=== PATIENT | female | born 1940 ===

== ENCOUNTER 2017-03-29 13:03 | Inpatient (IN) | payer MEDICARE ==
[2017-03-29 14:33] LABS: BASO % 0.5 % (0.0-2.0); EOS % 0.1 % (0.0-4.0); HEMOGLOBIN 13.8 g/dL (12.0-16.0); LYMPH # 1.9 K/uL (1.0-4.3); LYMPH % 24.4 % (20.0-40.0); MEAN CELL VOLUME 96.5 fl (81.0-99.0); MEAN CORPUSCULAR HEMOGLOBIN 32.4 pg (27.0-31.0); MEAN CORPUSCULAR HGB CONC 33.6 g/dL (33.0-37.0); MEAN PLATELET VOLUME 8.5 fl (7.2-11.7); MONO # 0.5 K/uL (0.0-0.8); MONO % 6.6 % (0.0-10.0); NEUT # 5.3 K/uL (1.8-7.0); NEUT % 68.4 % (50.0-75.0); NRBC % 0.1 % (0.0-0.0); RBC 4.26 Mil/uL (3.80-5.20); RED CELL DISTRIBUTION WIDTH 14.7 % (11.5-14.5); WHITE BLOOD COUNT 7.8 K/uL (4.8-10.8)
[2017-03-29 14:35] LABS: ALB/GLOB RATIO 1.4 (1.0-2.1); ALBUMIN 4.6 g/dL (3.5-5.0); CALCIUM 9.4 mg/dL (8.4-10.2)
[2017-03-29 14:40] LABS: SQUAMOUS EPITHIAL 2 /hpf (0-5); URINE BACTERIA RARE (<OCC); URINE BILIRUBIN NEGATIVE (NEGATIVE); URINE BLOOD NEGATIVE (NEGATIVE); URINE CLARITY SLIGHTY-CLOUDY (Clear); URINE COLOR YELLOW (YELLOW); URINE GLUCOSE (UA) NEG (Normal); URINE LEUKOCYTE ESTERASE TRACE Leu/uL (Negative); URINE NITRATE NEGATIVE (NEGATIVE); URINE PROTEIN 30 mg/dL (NEGATIVE)
--- NOTE | 2017-03-29 14:46 | ED PDOC ---
HPI: Abdomen Time Seen by Provider: 03/29/17 13:32 Chief Complaint (Nursing): GI Problem History Per: Patient History/Exam Limitations: no limitations Onset/Duration Of Symptoms: Gradual (yesterday) Current Symptoms Are (Timing): Still Present Severity: Mild Location Of Pain/Discomfort: LLQ Quality Of Discomfort: Dull Associated Symptoms: Constipation. denies: Fever, Chills, Nausea, Vomiting, Back Pain, Chest Pain Exacerbating Factors: None Alleviating Factors: None Last Bowel Movement: Today Additional History Per: Patient Additional Complaint(s): Pt ambulates into ED with c/o abdominal pain since last night associated with brbpr noted to stool. mild nausea and vomiting intermittent constipation for 2 weeks. no urinary complaints Past Medical History Reviewed: Historical Data, Nursing Documentation, Vital Signs Vital Signs: Last Vital Signs Temp 97.8 F 03/30/17 01:42 Pulse 54 L 03/30/17 01:42 Resp 20 03/30/17 01:42 BP 112/67 03/30/17 01:42 Pulse Ox 96 03/30/17 01:42 - Medical History PMH: Hyperlipidemia, Hypothyroidism - Surgical History Surgical History: No Surg Hx - Family History Family History: States: Unknown Family Hx - Living Arrangements Living Arrangements: With Family - Social History Current smoker - smoking cessation education provided: No - Home Medications Home Medications: Ambulatory Orders Medication Instructions Recorded No Known Home Med 03/29/17 - Allergies Allergies/Adverse Reactions: Allergies Allergy/AdvReac Type Severity Reaction Status Date / Time No Known Allergies Allergy Verified 03/29/17 13:55 Review of Systems ROS Statement: Except As Marked, All Systems Reviewed And Found Negative Constitutional: Negative for: Fever, Chills Cardiovascular: Negative for: Chest Pain, Palpitations Respiratory: Negative for: Cough, Shortness of Breath Gastrointestinal: Positive for: Nausea, Vomiting, Abdominal Pain, Constipation, Hematochezia. Negative for: Diarrhea, Melena, Hematemesis, Rectal Pain Genitourinary Female: Negative for: Dysuria Neurological: Negative for: Weakness, Numbness Physical Exam - Reviewed Nursing Documentation Reviewed: Yes Vital Signs Reviewed: Yes - Physical Exam Appears: Positive for: Uncomfortable Head Exam: Positive for: ATRAUMATIC, NORMAL INSPECTION, NORMOCEPHALIC Eye Exam: Positive for: Normal appearance, EOMI, PERRL Neck: Positive for: Normal, Painless ROM, Supple Cardiovascular/Chest: Positive for: Regular Rate, Rhythm, Chest Non Tender. Negative for: Edema, Gallop, Murmur, Bradycardia, Tachycardia Respiratory: Positive for: Normal Breath Sounds. Negative for: Decreased Breath Sounds, Accessory Muscle Use, Crackles, Rales, Rhonchi, Stridor, Wheezing Gastrointestinal/Abdominal: Positive for: Normal Exam, Bowel Sounds, Soft, Tenderness (mild llq). Negative for: Organomegaly, Mass, Distended, Guarding, Rebound, Hernia, Asicites Back: Positive for: Normal Inspection. Negative for: L CVA Tenderness, R CVA Tenderness, Vertebral Tenderness Extremity: Positive for: Normal ROM. Negative for: Tenderness, Pedal Edema, Calf Tenderness, Capillary Refill, Deformity, Swelling Neurologic/Psych: Positive for: Alert, web database developer II-XII, Oriented, Mood/Affect (calm) . Negative for: Motor/Sensory Deficits - Laboratory Results Result Diagrams: 03/30/17 06:00 03/30/17 06:00 - ECG O2 Sat by Pulse Oximetry: 100 Pulse Ox Interpretation: Normal - Progress ED Course And Treament: will admit for brbpr. ct scan reveals diffuse colitis. start antibiotics. Re-evaluation Time: 18:00 Condition: Improving,but remains with symptoms Disposition - Clinical Impression Clinical Impression: Colitis - Patient ED Disposition Is Patient to be Admitted: Yes Counseled Patient/Family Regarding: Studies Performed, Diagnosis - Disposition Disposition Time: 18:00 Condition: STABLE - Pt Status Changed To: Hospital Disposition Of: Observation - POA Present On Arrival: None
[2017-03-29] MEDS ORDERED: Sodium Chloride 0.9% 50 ML IV ONE (15:10)
[2017-03-29] MEDS ORDERED: Iodixanol 320 MG/ML 100 ML BOTTLE IV ONE (15:10)
[2017-03-29] MEDS ORDERED: metroNIDAZOLE 500mg/100ml NS 100 ML IVPB STA (17:36)
[2017-03-29] MEDS ORDERED: Ciprofloxacin 400mg/200ml D5W 400 MG/200 ML BAG IVPB STA (17:36)
--- NOTE | 2017-03-29 19:30 | CP.PCM.HP ---
History of Present Illness - History of Present Illness History of Present Illness: PCP: Not on Staff Chief Complaint: Abdominal Pain/ Red blood Per rectum HPI: The hx is obtained from the Patient and her daughter. She is a 77 years old female with hx of HLD and Hypothyroidism, off treatment. She comes referring 2 weeks of constipation, not eating much and developing 2 days ago a sudden unset of dull, continuous non radiating LLQ abdominal pain which continued until this day of admission, ending after she had a bowel movement, passing stool and red blood. She also referred epigastric pain which ceased after episodes of Vomiting. No prior hx of blood in stool, Chest pain, SOB, Urinary symptoms nor fever. PMH: HLD; Hypothyroidism which apparently has improved. PSH: Appendectomy; Dental surgery, cataract surgery SH: Former smoker, Quit 22 years ago; No alcohol use; No illegal drug use; Live with family FH: Daughter with Pancreatic cancer Allergies: NKDA Medication: None Present on Admission - Present on Admission Any Indicators Present on Admission: No History of DVT/PE: No History of Uncontrolled Diabetes: No Urinary Catheter: No Decubitus Ulcer Present: No Review of Systems - Constitutional Constitutional: absent: Anorexia, Chills, Fever, Headache - EENT Eyes: Requires Corrective Lenses. absent: Diplopia, Floaters Ears: absent: Decreased Hearing, Ear Discharge, Ear Pain, Tinnitus Nose/Mouth/Throat: absent: Epistaxis, Nasal Congestion, Nasal Discharge, Sinus Pain, Sinus Pressure - Cardiovascular Cardiovascular: absent: Chest Pain, Dyspnea, Edema - Respiratory Respiratory: absent: Cough, Dyspnea, Wheezing, Chest Congestion - Gastrointestinal Gastrointestinal: Abdominal Pain, Constipation, Hematochezia, Vomiting. absent : Diarrhea Additional comments: LLQ abdominal pain Epigastric Pains - Genitourinary Genitourinary: absent: Dysuria, Flank Pain, Hematuria, Urinary Frequency - Musculoskeletal Musculoskeletal: Back Pain. absent: Arthralgias, Muscle Cramps, Myalgias - Integumentary Integumentary: absent: Pruritus, Rash, Skin Ulcer, Sores, Striae, Swelling - Neurological Neurological: absent: Confusion, Focal Weakness, Tremor, Vertigo - Psychiatric Psychiatric: absent: Anxiety, Depression, Panic Attacks - Endocrine Endocrine: absent: Palpitations, Polydipsia, Polyphagia, Polyuria - Hematologic/Lymphatic Hematologic: absent: Easy Bleeding, Easy Bruising Past Patient History - Infectious Disease Hx of Infectious Diseases: None - Past Social History Smoking Status: Never Smoked Chewing Tobacco Use: No Cigar Use: No Alcohol: None Drugs: Denies Home Situation {Lives}: With Family - CARDIAC Hx Cardiac Disorders: Yes Hx Hypercholesterolemia: Yes - PULMONARY Hx Respiratory Disorders: No - NEUROLOGICAL Hx Neurological Disorder: No - HEENT Hx HEENT Problems: No - RENAL Hx Chronic Kidney Disease: No - ENDOCRINE/METABOLIC Hx Hypothyroidism: Yes - HEMATOLOGICAL/ONCOLOGICAL Hx Blood Disorders: No - INTEGUMENTARY Hx Dermatological Problems: No - MUSCULOSKELETAL/RHEUMATOLOGICAL Hx Back Pain: Yes - GASTROINTESTINAL Hx Gastrointestinal Disorders: No - GENITOURINARY/GYNECOLOGICAL Hx Genitourinary Disorders: No - PSYCHIATRIC Hx Psychophysiologic Disorder: No Hx Substance Use: No - SURGICAL HISTORY Hx Surgeries: Yes Hx Appendectomy: Yes Hx Cataract Extraction: Yes Other/Comment: DENTAL - ANESTHESIA Hx Anesthesia: Yes Hx Anesthesia Reactions: No Meds Allergies/Adverse Reactions: Allergies Allergy/AdvReac Type Severity Reaction Status Date / Time No Known Allergies Allergy Verified 03/29/17 13:55 Physical Exam - Constitutional Appears: No Acute Distress - Head Exam Head Exam: ATRAUMATIC, NORMAL INSPECTION, NORMOCEPHALIC - Eye Exam Eye Exam: EOMI, Normal appearance Pupil Exam: NORMAL ACCOMODATION, PERRL - ENT Exam ENT Exam: Mucous Membranes Moist, Normal Exam, Normal External Ear Exam, Normal Oropharynx - Neck Exam Neck exam: Positive for: Full Rom, Normal Inspection. Negative for: Lymphadenopathy, Tenderness - Respiratory Exam Respiratory Exam: Clear to Auscultation Bilateral. absent: Rales, Rhonchi, Wheezes - Cardiovascular Exam Cardiovascular Exam: REGULAR RHYTHM, RRR, +S1, +S2. absent: Gallop, JVD - GI/Abdominal Exam GI & Abdominal Exam: Normal Bowel Sounds, Soft. absent: Mass, Organomegaly - Rectal Exam Rectal Exam: Deferred - Extremities Exam Extremities exam: Positive for: full ROM, normal inspection. Negative for: calf tenderness, pedal edema - Back Exam Back exam: NORMAL INSPECTION. absent: CVA tenderness (L), CVA tenderness (R) - Neurological Exam Neurological exam: Alert, CN II-XII Intact, Oriented x3, Reflexes Normal - Psychiatric Exam Psychiatric exam: Normal Affect, Normal Mood - Skin Skin Exam: Dry, Intact, Normal Color, Warm Results - Vital Signs Recent Vital Signs: Last Vital Signs Temp 97.4 F L 03/29/17 13:08 Pulse 82 03/29/17 18:53 Resp 18 03/29/17 18:53 BP 152/74 H 03/29/17 18:53 Pulse Ox 97 03/29/17 18:53 - Labs Result Diagrams: 03/29/17 14:10 03/29/17 14:10 Labs: Laboratory Results - last 24 hr 03/29/17 03/29/17 03/29/17 14:10 14:10 14:29 WBC 7.8 RBC 4.26 Hgb 13.8 Hct 41.1 MCV 96.5 MCH 32.4 H MCHC 33.6 RDW 14.7 H Plt Count 161 MPV 8.5 Neut % (Auto) 68.4 Lymph % (Auto) 24.4 [place] % (Auto) 6.6 Eos % (Auto) 0.1 Baso % (Auto) 0.5 Neut # 5.3 Lymph # 1.9 [place] # 0.5 Eos # 0.0 Baso # 0.0 Sodium 140 Potassium 4.3 Chloride 104 Carbon Dioxide 27 Anion Gap 14 BUN 16 Creatinine 1.2 Est GFR ( Amer) 53 Est GFR (Non-Af Amer) 43 Random Glucose 89 Calcium 9.4 Total Bilirubin 0.8 AST 41 H ALT 44 Alkaline Phosphatase 57 Total Protein 7.8 Albumin 4.6 Globulin 3.2 Albumin/Globulin Ratio 1.4 Amylase 102 Lipase 27 Urine Color Yellow Urine Clarity Slighty-cloudy Urine pH 6.0 Ur Specific [place] 1.027 Urine Protein 30 Urine Glucose (UA) Neg Urine Ketones 20 Urine Blood Negative Urine Nitrate Negative Urine Bilirubin Negative Urine Urobilinogen 2.0 H Ur Leukocyte Esterase Trace Urine RBC (Auto) 3 Urine Microscopic WBC 6 H Ur Squamous Epith Cells 2 Urine Bacteria Rare - Imaging and Cardiology CT scan - abdomen Status: Report reviewed by me Additional comment: FINDINGS: Lower thorax: The visualized lung bases are clear. ABDOMEN: Liver: There is no focal liver lesion. Gallbladder and bile ducts: The gallbladder is normal. Pancreas: The pancreas is normal. Spleen: The spleen is normal. Adrenals: Adrenal glands are normal. Kidneys and ureters: There is no hydronephrosis or obstructive nephrolithiasis. There is no renal lesion. Stomach and bowel: There is diffuse wall thickening of the splenic flexure of the transverse colon extending into the descending colon and sigmoid colon consistent with nonspecific colitis. There is also nonspecific wall thickening of the rectum just above proctitis. Appendix: No findings to suggest acute appendicitis. PELVIS: Bladder: The urinary bladder is normal. Reproductive: Evaluation of the uterus is limited however there appears to be fluid within the endometrial cavity. ABDOMEN and PELVIS: Intraperitoneal space: Normal. No free air. No significant fluid collection. Bones/joints: There is no focal suspicious osseous abnormality. There are degenerative changes of the spine. There is mild age indeterminate compression fracture deformity of T11 vertebral body. Soft tissues: No soft tissue abnormality is identified. Vasculature: There is no abdominal aortic aneurysm. There are ath a erosclerotic calcifications of the abdominal aorta. Lymph nodes: No large adenopathy is identified. IMPRESSION: Diffuse wall thickening of the distal transverse colon extending into the descending colon, sigmoid colon and rectum consistent with colitis and proctitis. There is fluid within the endometrial cavity. Correlation with pelvic ultrasound is recommended. There is mild age indeterminate compression fracture deformity of T11 vertebral body. Assessment & Plan - Assessment and Plan (Free Text) Assessment: #.Colitis and Proctitis #. Lower GI bleed Plan: 77 years old female with hx of HLD and Hypothyroidism, off treatment.Comes with 2 weeks of constipation, and developing 2 days ago a sudden unset of dull, continuous non radiating LLQ abdominal pain which ending after she had a bowel movement, passing stool and red blood, associated with vomiting. No prior hx of blood in stool. #.Colitis and Proctitis #. Lower GI bleed - Consult Dr Doan GI - NPO - Stool for C diff - Follow Hb - Cipro - Flagyl - IV Fluids D5/NS at 100mls/hr #. Stress ulcer Prophylaxis with Pepcid # DVT prophylaxis with SCD #. Code Status: Full - Date & Time Date: 03/29/17 Time: 19:30
[2017-03-29] MEDS: Dextrose 5%/0.9% NS 1,000 ML IV SCH (22:24)
[2017-03-30 07:10] LABS: HEMOGLOBIN 14.4 g/dL (12.0-16.0); MEAN CELL VOLUME 96.8 fl (81.0-99.0); MEAN CORPUSCULAR HEMOGLOBIN 32.4 pg (27.0-31.0); MEAN CORPUSCULAR HGB CONC 33.5 g/dL (33.0-37.0); RBC 4.46 Mil/uL (3.80-5.20); RED CELL DISTRIBUTION WIDTH 14.6 % (11.5-14.5); WHITE BLOOD COUNT 7.6 K/uL (4.8-10.8)
[2017-03-30 07:28] LABS: CALCIUM 8.6 mg/dL (8.4-10.2)
[2017-03-30 07:33] LABS: PARTIAL THROMBOPLASTIN TIME 33.9 Seconds (25.6-37.1); PROTHROMBIN TIME 11.1 Seconds (9.8-13.1)
[2017-03-30] MEDS: Dextrose 5%/0.9% NS 1,000 ML IV SCH (07:50)
[2017-03-30] MEDS ORDERED: metroNIDAZOLE 500mg/100ml NS 100 ML IVPB SCH (09:00)
[2017-03-30] MEDS ORDERED: Ciprofloxacin 400mg/200ml D5W 400 MG/200 ML BAG IVPB SCH (09:00)
--- NOTE | 2017-03-30 09:22 | CT ---
PROCEDURE: CT Abdomen and Pelvis with contrast HISTORY: llq abd pain r/o diveriticulitis COMPARISON: None. TECHNIQUE: Helical CT of the abdomen pelvis was performed following intravenous contrast administration only. Oral contrast was not administered. Contrast dose: Visipaque 320, 99 cc. Radiation dose: Total exam DLP = 807 mGy-cm. This CT exam was performed using one or more of the following dose reduction techniques: Automated exposure control, adjustment of the mA and/or kV according to patient size, and/or use of iterative reconstruction technique. FINDINGS: LOWER THORAX: Limited linear atelectasis or fibrosis seen at the right middle lobe and left lower lobe bases. LIVER: Unremarkable. No gross lesion or ductal dilatation. GALLBLADDER AND BILE DUCTS: Unremarkable. PANCREAS: Unremarkable. No gross lesion or ductal dilatation. SPLEEN: Unremarkable. ADRENALS: Unremarkable. No mass. KIDNEYS AND URETERS: Unremarkable. No hydronephrosis. No solid mass. VASCULATURE: Unremarkable. No aortic aneurysm. BOWEL: There is marked thickening of the splenic flexure with modest moderate thickening of the descending colon through sigmoid segment and even the upper rectum. Edema in the wall of the large bowel appears to include the mid to distal traverse segment as well. No ascites or free intrarenal gas. No abscess. Trace local pericolic reaction is appreciated in the pattern is most compatible with segmental colitis of indeterminate etiology. Consider infectious or inflammatory causes with ischemia neoplasm included in the differential diagnosis but not necessarily favored. Water density fluid distends the stomach which is unremarkable appearing. Unopacified small bowel loops appear grossly nonfocal as imaged. APPENDIX: Normal appendix. PERITONEUM: Unremarkable. No free fluid. No free air. LYMPH NODES: Unremarkable. No enlarged lymph nodes. BLADDER: Unremarkable. REPRODUCTIVE: Trace fluid noted is noted at the endometrial cavity. BONES: Advanced degenerative calcifications and disc height loss identified at L4-5 L5-S1 with peripheral multiple compression fracture identified at the visualized inferior thoracic spine, specifically T8 and T9 as well as T11 and T12. OTHER FINDINGS: None. IMPRESSION: 1. Segmental colitis affects the large bowel from the mid transverse segment to the upper rectum without CT evidence of bowel perforation or abscess. Please see different diagnosis above. 2. Trace fluid noted in the endometrial cavity. 3. Incidental multilevel low inferior thoracic spinal compression fractures of indeterminate age. Concur with [facility] preliminary report by Dr. Sigrid Sesay.
--- NOTE | 2017-03-30 14:19 | CP.PCM.CON ---
History of Present Illness - History of Present Illness History of Present Illness: 77 yo female admitted wt abdominal pain and GI bleed. Patient has been eating poorly for the past 2 weeks and severe constipation. Shefelt better after passing hard stool but noted some bleeding. Bleeding was minimal. currently patient eating and has no complaints. Review of Systems - Constitutional Constitutional: absent: Chills - EENT Eyes: absent: Blurred Vision Ears: absent: Ear Pain Nose/Mouth/Throat: absent: Epistaxis - Cardiovascular Cardiovascular: absent: Chest Pain - Respiratory Respiratory: absent: Dyspnea - Gastrointestinal Gastrointestinal: As Per HPI - Genitourinary Genitourinary: absent: Change in Urinary Stream Past Patient History - Infectious Disease Hx of Infectious Diseases: None - Past Medical History & Family History Past Medical History?: Yes - Past Social History Smoking Status: Never Smoked Chewing Tobacco Use: No Cigar Use: No Alcohol: None Drugs: Denies Home Situation {Lives}: With Family - CARDIAC Hx Cardiac Disorders: Yes Hx Hypercholesterolemia: Yes - PULMONARY Hx Respiratory Disorders: No - NEUROLOGICAL Hx Neurological Disorder: No - HEENT Hx HEENT Problems: No - RENAL Hx Chronic Kidney Disease: No - ENDOCRINE/METABOLIC Hx Hypothyroidism: Yes - HEMATOLOGICAL/ONCOLOGICAL Hx Blood Disorders: No - INTEGUMENTARY Hx Dermatological Problems: No - MUSCULOSKELETAL/RHEUMATOLOGICAL Hx Back Pain: Yes - GASTROINTESTINAL Hx Gastrointestinal Disorders: No - GENITOURINARY/GYNECOLOGICAL Hx Genitourinary Disorders: No - PSYCHIATRIC Hx Psychophysiologic Disorder: No Hx Substance Use: No - SURGICAL HISTORY Hx Surgeries: Yes Hx Appendectomy: Yes Hx Cataract Extraction: Yes Other/Comment: DENTAL - ANESTHESIA Hx Anesthesia: Yes Hx Anesthesia Reactions: No Meds Home Medications: Home Medication List Medication Instructions Recorded Confirmed Type Levothyroxine [Synthroid] 100 mcg PO DAILY #30 tab 03/30/17 Rx Allergies/Adverse Reactions: Allergies Allergy/AdvReac Type Severity Reaction Status Date / Time No Known Allergies Allergy Verified 03/29/17 13:55 - Medications Medications: Current Medications Famotidine (Pepcid) 20 mg IVP Q12 ERIKA Last Admin: 03/30/17 10:42 Dose: 20 mg Ciprofloxacin (Cipro 400mg/200ml Dsw) 400 mg in 200 mls @ 200 mls/hr IVPB Q12 ERIKA Last Admin: 03/30/17 11:43 Dose: 200 mls/hr Metronidazole (Flagyl 500mg/100ml Ns) 100 mls @ 100 mls/hr IVPB Q8 ERIKA Last Admin: 03/30/17 10:42 Dose: 100 mls/hr Dextrose/Sodium Chloride (Dextrose 5%/0.9% Ns 1000 Ml) 1,000 mls @ 100 mls/hr IV .Q10H [facility] Stop: 03/30/17 20:26 Last Admin: 03/30/17 07:50 Dose: Not Given Physical Exam - Constitutional Appears: Well - Eye Exam Eye Exam: Normal appearance Pupil Exam: PERRL - ENT Exam ENT Exam: Mucous Membranes Moist - Neck Exam Neck exam: Positive for: Normal Inspection - Respiratory Exam Respiratory Exam: Clear to Auscultation Bilateral - Cardiovascular Exam Cardiovascular Exam: REGULAR RHYTHM, +S1, +S2 - GI/Abdominal Exam GI & Abdominal Exam: Normal Bowel Sounds, Soft. absent: Tenderness Results - Vital Signs Recent Vital Signs: Last Vital Signs Temp 98.4 F 03/30/17 08:17 Pulse 49 L 03/30/17 08:17 Resp 20 03/30/17 08:17 BP 115/58 L 03/30/17 08:17 Pulse Ox 96 03/30/17 08:17 - Labs Result Diagrams: 03/30/17 06:00 03/30/17 06:00 Labs: Laboratory Results - last 24 hr 03/30/17 03/30/17 03/30/17 06:00 06:00 06:00 WBC 7.6 RBC 4.46 Hgb 14.4 Hct 43.1 MCV 96.8 MCH 32.4 H MCHC 33.5 RDW 14.6 H Plt Count 152 PT 11.1 INR 1.0 APTT 33.9 Sodium 140 Potassium 3.9 Chloride 105 Carbon Dioxide 27 Anion Gap 11 BUN 11 Creatinine 1.1 Est GFR ( Amer) 58 Est GFR (Non-Af Amer) 48 Random Glucose 109 H Calcium 8.6 TSH 3rd Generation 259.00 H Assessment & Plan (1) GI bleed Assessment and Plan: GI bleed likely due to straining and no ongoing active bleeding. No clinical evidence of colitis as patient without complaint of pain,and physical exam is normal. TSH very high. Patient should be discharged on laxatives. Needs reesume levothyroxine. F/u for GI bleeding as outpatient. Status: Acute
--- NOTE | 2017-03-30 15:25 | CP.PCM.DIS ---
Provider - Provider Date of Admission: 03/29/17 20:15 Attending physician: Richard Gustafson Primary care physician: None Consults: gastroenterology consult Time Spent in preparation of Discharge (in minutes): 20 Hospital Course - Lab Results Lab Results: Most Recent Lab Values WBC 7.6 K/uL (4.8-10.8) 03/30/17 06:00 RBC 4.46 Mil/uL (3.80-5.20) 03/30/17 06:00 Hgb 14.4 g/dL (12.0-16.0) 03/30/17 06:00 Hct 43.1 % (34.0-47.0) 03/30/17 06:00 MCV 96.8 fl (81.0-99.0) 03/30/17 06:00 MCH 32.4 pg (27.0-31.0) H 03/30/17 06:00 MCHC 33.5 g/dL (33.0-37.0) 03/30/17 06:00 RDW 14.6 % (11.5-14.5) H 03/30/17 06:00 Plt Count 152 K/uL (130-400) 03/30/17 06:00 MPV 8.5 fl (7.2-11.7) 03/29/17 14:10 Neut % (Auto) 68.4 % (50.0-75.0) 03/29/17 14:10 Lymph % (Auto) 24.4 % (20.0-40.0) 03/29/17 14:10 [place] % (Auto) 6.6 % (0.0-10.0) 03/29/17 14:10 Eos % (Auto) 0.1 % (0.0-4.0) 03/29/17 14:10 Baso % (Auto) 0.5 % (0.0-2.0) 03/29/17 14:10 Neut # 5.3 K/uL (1.8-7.0) 03/29/17 14:10 Lymph # 1.9 K/uL (1.0-4.3) 03/29/17 14:10 [place] # 0.5 K/uL (0.0-0.8) 03/29/17 14:10 Eos # 0.0 K/uL (0.0-0.7) 03/29/17 14:10 Baso # 0.0 K/uL (0.0-0.2) 03/29/17 14:10 PT 11.1 Seconds (9.8-13.1) 03/30/17 06:00 INR 1.0 (0.9-1.2) 03/30/17 06:00 APTT 33.9 Seconds (25.6-37.1) 03/30/17 06:00 Sodium 140 mmol/l (132-148) 03/30/17 06:00 Potassium 3.9 MMOL/L (3.6-5.0) 03/30/17 06:00 Chloride 105 mmol/L (98-107) 03/30/17 06:00 Carbon Dioxide 27 mmol/L (22-30) 03/30/17 06:00 Anion Gap 11 (10-20) 03/30/17 06:00 BUN 11 mg/dl (7-17) 03/30/17 06:00 Creatinine 1.1 mg/dL (0.7-1.2) 03/30/17 06:00 Est GFR ( Amer) 58 03/30/17 06:00 Est GFR (Non-Af Amer) 48 03/30/17 06:00 Random Glucose 109 mg/dL (65-105) H 03/30/17 06:00 Calcium 8.6 mg/dL (8.4-10.2) 03/30/17 06:00 Total Bilirubin 0.8 mg/dl (0.2-1.3) 03/29/17 14:10 AST 41 U/L (14-36) H 03/29/17 14:10 ALT 44 U/L (9-52) 03/29/17 14:10 Alkaline Phosphatase 57 U/L (38-126) 03/29/17 14:10 Total Protein 7.8 G/DL (6.3-8.2) 03/29/17 14:10 Albumin 4.6 g/dL (3.5-5.0) 03/29/17 14:10 Globulin 3.2 gm/dL (2.2-3.9) 03/29/17 14:10 Albumin/Globulin Ratio 1.4 (1.0-2.1) 03/29/17 14:10 Amylase 102 U/L (30-110) 03/29/17 14:10 Lipase 27 U/L (23-300) 03/29/17 14:10 TSH 3rd Generation 259.00 mIU/ML (0.46-4.68) H 03/30/17 06:00 Urine Color Yellow (YELLOW) 03/29/17 14:29 Urine Clarity Slighty-cloudy (Clear) 03/29/17 14:29 Urine pH 6.0 (5.0-8.0) 03/29/17 14:29 Ur Specific [place] 1.027 (1.003-1.030) 03/29/17 14:29 Urine Protein 30 mg/dL (NEGATIVE) 03/29/17 14:29 Urine Glucose (UA) Neg mg/dL (Normal) 03/29/17 14:29 Urine Ketones 20 mg/dL (NEGATIVE) 03/29/17 14:29 Urine Blood Negative (NEGATIVE) 03/29/17 14:29 Urine Nitrate Negative (NEGATIVE) 03/29/17 14:29 Urine Bilirubin Negative (NEGATIVE) 03/29/17 14:29 Urine Urobilinogen 2.0 mg/dL (0.2-1.0) H 03/29/17 14:29 Ur Leukocyte Esterase Trace [place]/uL (Negative) 03/29/17 14:29 Urine RBC (Auto) 3 /hpf (0-3) 03/29/17 14:29 Urine Microscopic WBC 6 /hpf (0-5) H 03/29/17 14:29 Ur Squamous Epith Cells 2 /hpf (0-5) 03/29/17 14:29 Urine Bacteria Rare (<OCC) 03/29/17 14:29 - Hospital Course Hospital Course: 77 years old female with hx of HLD and Hypothyroidism, off treatment came in giving history of poor po intake, constipation for 2 weeks and developing 2 days ago a sudden unset of dull, continuous non radiating LLQ abdominal pain which continued until this day of admission, ending after she had a bowel movement, passing stool and red blood. She also referred epigastric pain which ceased after episodes of Vomiting. No prior hx of blood in stool, Chest pain, SOB, Urinary symptoms nor fever. Ct abdomen and pelvis showed 1. Segmental colitis affects the large bowel from the mid transverse segment to the upper rectum without CT evidence of bowel perforation or abscess. Please see different diagnosis above. 2. Trace fluid noted in the endometrial cavity. 3. Incidental multilevel low inferior thoracic spinal compression fractures of indeterminate age. Patient was admitted in med/surg with potential diagnosis of colitis and rectal bleed. Started on IVF, Cipro , flagyl and GI was consulted. Repeat CBc showed stable H& H.Patient is not having an active GI bleed . Her symptoms improved , denies any abdominal pain , tolerating po intake. Discussed with GI Colitis and active GI bleed ruled out. Most likely diagnosis is constipation and bleeding due to straining . Patient advised to improve her fiber intake and use prune juice for regular BM. She also diagnosed with hypothyroidsm that could be the reason for her constipation. Her TSH found to be very elevated 259 Started on Synthroid 100 mcg PO daily and recommended follow up with [facility] in 1 week with repeat TSH for dose adjustment. patient will need colonoscopy and upper EGD as out patient Will discharge patient home Dx; Hypothyroidism Constipation Rectal bleed secondary to constipation and straining-- active GI bleed ruled out Colitis ruled out Discharge Exam - Head Exam Head Exam: ATRAUMATIC, NORMAL INSPECTION, NORMOCEPHALIC - Eye Exam Eye Exam: EOMI, Normal appearance, PERRL Pupil Exam: NORMAL ACCOMODATION - ENT Exam ENT Exam: Mucous Membranes Moist, Normal Exam - Neck Exam Neck exam: Full Rom, Normal Inspection - Respiratory Exam Respiratory Exam: Clear to PA & Lateral, NORMAL BREATHING PATTERN. absent: Rales, Rhonchi, Wheezes - Cardiovascular Exam Cardiovascular Exam: REGULAR RHYTHM, RRR, +S1, +S2. absent: JVD - GI/Abdominal Exam GI & Abdominal Exam: Normal Bowel Sounds, Soft. absent: Distended, Guarding, Rebound, Tenderness - Rectal Exam Rectal Exam: Deferred - Extremities Exam Extremities exam: normal capillary refill, normal inspection, pedal pulses present - Back Exam Back exam: NORMAL INSPECTION - Neurological Exam Neurological exam: Alert, CN II-XII Intact, Oriented x3, Reflexes Normal - Psychiatric Exam Psychiatric exam: Normal Affect, Normal Mood - Skin Skin Exam: Dry, Intact, Normal Color, Warm Discharge Plan - Discharge Medications Prescriptions: Levothyroxine [Synthroid] 100 mcg PO DAILY #30 tab - Follow Up Plan Condition: STABLE Disposition: HOME/ ROUTINE Patient education suggested?: Yes Instructions: Constipation (DC), High Fiber Diet (DC), Hypothyroidism (DC) Additional Instructions: script for blood work given for TSH for 04/06/17 follow up in clinic in 1 week. call for appointment. Referrals: [facility] [Outside]
[2017-03-30 16:05] VITALS: BP 104/52; PULSE 60; RESP 16; TEMP 98; O2SAT 94
== END 2017-03-30 18:19 | disposition home or self-care (01) | DRG 644 ==
LOC: H.ER 13:03 → H.ERHOLD 19:22 → OBSVTOIN 20:15 → H.MEDSURG1 21:31
PROVIDERS: ADMIT Internal Medicine; ATTEND Internal Medicine
DX: E03.9 Hypothyroidism, unspecified (principal); K62.5 Hemorrhage of anus and rectum; E78.5 Hyperlipidemia, unspecified; K59.00 Constipation, unspecified; Z87.891 Personal history of nicotine dependence